=== PATIENT | male | born 1960 | race African-American/Black ===

== ENCOUNTER 2017-03-11 03:28 | Emergency (ER) | payer OTHER, BC ==
[2017-03-11] MEDS ORDERED: methylPREDNISolone NA SUCC 125 MG/2 ML VIAL IVPB ONE (04:19)
[2017-03-11] MEDS ORDERED: SODIUM CHLORIDE 1,000 ML IV STA (04:19)
[2017-03-11] MEDS ORDERED: MAGNESIUM SULF 50% (8.12 MEQ/2 ML-1 GM VIAL) IVPB ONE (04:19)
[2017-03-11] MEDS: ALBUTEROL SO4 2.5/IPRATROPIUM 0.5 INH SOL 3 ML VIAL.NEB. NEB SCH ×4 (04:36→05:30)
[2017-03-11] MEDS ORDERED: MAGNESIUM SULF 50% (8.12 MEQ/2 ML-1 GM VIAL) ONE (04:47)
[2017-03-11] MEDS ORDERED: methylPREDNISolone NA SUCC 125 MG/2 ML VIAL ONE (04:47)
[2017-03-11 04:48] VITALS: BMI 34.2
[2017-03-11 04:48] LABS: BASOPHIL 1.2 % (0-2.0); EOSINOPHIL 12.7 % (0-4.5); MCH 31.4 pg (25.7-33.7); MCHC 32.6 g/dl (32.0-35.9); MEAN CELL VOLUME 96.4 fl (80-96); MEAN PLT VOLUME 8.4 fl (7.5-11.1); PLATELET COUNT 184 K/MM3 (134-434); RDW 14.3 % (11.9-15.9)
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
[2017-03-11 05:10] LABS: ALBUMIN 3.9 g/dl (3.4-5.0); ANION GAP 15 (8-16); BILIRUBIN,TOTAL 0.2 mg/dL (0.2-1.0); CALCIUM 8.7 mg/dL (8.5-10.1); CO2 23 mmol/L (21-32); COCKROFT - GAULT 135.44; CREATININE 0.9 mg/dL (0.7-1.3); GLUCOSE,RANDOM 112 mg/dL (74-106); SGOT/AST 32 U/L (15-37); SGPT/ALT 33 U/L (12-78); TOT PROT 7.3 g/dl (6.4-8.2)
[2017-03-11 05:13] LABS: ALK PHOS 79 U/L (45-117); TROPONIN I < 0.02 ng/ml (0.00-0.05)
[2017-03-11] MEDS ORDERED: ALBUTEROL SO4 2.5/IPRATROPIUM 0.5 INH SOL 3 ML VIAL.NEB. NEB ONE (05:50)
--- NOTE | 2017-03-11 06:09 | PDOC ---
*Physical Exam - Vital Signs Last Vital Signs Temp Pulse Resp BP Pulse Ox 97.1 F L 88 22 114/70 95 03/11/17 04:04 03/11/17 04:04 03/11/17 04:04 03/11/17 04:04 03/11/17 04:04 ED Treatment Course - LABORATORY CBC & Chemistry Diagram: 03/11/17 04:39 03/11/17 04:39 - ADDITIONAL ORDERS Additional order review: Laboratory Results 03/11/17 04:39 Sodium 143 Potassium 3.5 D Chloride 105 Carbon Dioxide 23 Anion Gap 15 BUN 12 D Creatinine 0.9 Creat Clearance w eGFR > 60 Random Glucose 112 H Calcium 8.7 Total Bilirubin 0.2 D AST 32 D ALT 33 D Alkaline Phosphatase 79 Creatine Kinase 697 H D Troponin I < 0.02 D Total Protein 7.3 Albumin 3.9 D 03/11/17 04:39 RBC 4.23 D MCV 96.4 H MCHC 32.6 RDW 14.3 MPV 8.4 Neutrophils % 37.0 L D Lymphocytes % 39.0 D Monocytes % 10.1 Eosinophils % 12.7 H D Basophils % 1.2 D - Medications Given in the ED: ED Medications Discontinued Medications Generic Name Dose Route Start Last Admin Trade Name Freq PRN Reason Stop Dose Admin Albuterol/Ipratropium 1 amp 03/11/17 04:30 03/11/17 05:30 Duoneb - NEB 03/11/17 05:16 1 amp Q15M KENNEDY Administration Sodium Chloride 1,000 mls @ 1,000 mls/hr 03/11/17 04:19 03/11/17 04:59 Normal Saline - IV 03/11/17 05:18 1,000 mls/hr ASDIR STA Administration Magnesium Sulfate 2 gm 03/11/17 04:19 03/11/17 05:15 Magnesium Sulfate IVPB 03/11/17 04:20 2 gm ONCE ONE Administration Methylprednisolone Sodium Succinate 125 mg 03/11/17 04:19 03/11/17 05:00 Solu-Medrol - IVPB 03/11/17 04:20 125 mg ONCE ONE Administration Medical Decision Making - Medical Decision Making 03/11/17 06:00 Patient received in sign out from WALKER Mejia. Patient with history of asthma presenting with wheezing and cough despite using his albuterol inhaler and nebulizer once. Patient given steroids fluids and DuoNeb patient currently receiving DuoNeb. Patient will be reevaluated and asked to ambulate the ER and then check O2 sat. Patient's lungs are clear bilateral without wheezing, accessory muscle usage, or tachypnea. 03/11/17 06:22 Patient satting at 100% on room air. Patient has no inspiratory expiratory wheeze presently. Patient states feeling much better and will discharge home with a refill of his albuterol inhaler and 3 more days of steroids. *DC/Admit/Observation/Transfer Diagnosis at time of Disposition: Exacerbation of asthma - Discharge Dispostion Disposition: HOME Condition at time of disposition: Improved - Referrals Referrals: Osmin Briceño MD [Primary Care Provider] - - Patient Instructions Printed Discharge Instructions: DI for Asthma -- Adult Additional Instructions: Please take steroids starting tomorrow since your given a dose here in the ER ready. Also recommend that you avoid using the vapor cigarette and carry your albuterol inhaler with you at all times.
[2017-03-11 06:28] VITALS: BP 116/72; PULSE 68; TEMP 97.4
--- NOTE | 2017-03-11 06:29 | PDOC ---
*Physical Exam - Vital Signs Last Vital Signs Temp Pulse Resp BP Pulse Ox 97.1 F L 88 22 114/70 95 03/11/17 04:04 03/11/17 04:04 03/11/17 04:04 03/11/17 04:04 03/11/17 04:04 ED Treatment Course - LABORATORY CBC & Chemistry Diagram: 03/11/17 04:39 03/11/17 04:39 - ADDITIONAL ORDERS Additional order review: Laboratory Results 03/11/17 03/11/17 04:39 04:39 Sodium 143 Potassium 3.5 D Chloride 105 Carbon Dioxide 23 Anion Gap 15 BUN 12 D Creatinine 0.9 Creat Clearance w eGFR > 60 Random Glucose 112 H Calcium 8.7 Total Bilirubin 0.2 D AST 32 D ALT 33 D Alkaline Phosphatase 79 Creatine Kinase 697 H D Creatine Kinase Index 0.3 CK-MB (CK-2) 2.562 CK-MB (CK-2) Rel Index Cancelled Troponin I < 0.02 D Total Protein 7.3 Albumin 3.9 D 03/11/17 04:39 RBC 4.23 D MCV 96.4 H MCHC 32.6 RDW 14.3 MPV 8.4 Neutrophils % 37.0 L D Lymphocytes % 39.0 D Monocytes % 10.1 Eosinophils % 12.7 H D Basophils % 1.2 D - Medications Given in the ED: ED Medications Discontinued Medications Generic Name Dose Route Start Last Admin Trade Name Freq PRN Reason Stop Dose Admin Albuterol/Ipratropium 1 amp 03/11/17 04:30 03/11/17 05:30 Duoneb - NEB 03/11/17 05:16 1 amp Q15M KENNEDY Administration Sodium Chloride 1,000 mls @ 1,000 mls/hr 03/11/17 04:19 03/11/17 04:59 Normal Saline - IV 03/11/17 05:18 1,000 mls/hr ASDIR STA Administration Magnesium Sulfate 2 gm 03/11/17 04:19 03/11/17 05:15 Magnesium Sulfate IVPB 03/11/17 04:20 2 gm ONCE ONE Administration Methylprednisolone Sodium Succinate 125 mg 03/11/17 04:19 03/11/17 05:00 Solu-Medrol - IVPB 03/11/17 04:20 125 mg ONCE ONE Administration Medical Decision Making - Medical Decision Making 03/11/17 06:28 agree with care from WALKER Espinal and WALKER Castorena *DC/Admit/Observation/Transfer Diagnosis at time of Disposition: Asthma exacerbation - Discharge Dispostion Disposition: HOME Condition at time of disposition: Improved - Prescriptions Prescriptions: Prednisone [Deltasone -] 40 mg PO DAILY #6 tablet Albuterol Sulfate Inhaler - [Ventolin HFA Inhaler -] 1 - 2 inh PO QID PRN #1 inhaler PRN Reason: Wheezing - Referrals Referrals: Osmin Briceño MD [Primary Care Provider] - - Patient Instructions Printed Discharge Instructions: DI for Asthma -- Adult Additional Instructions: Please take steroids starting tomorrow since your given a dose here in the ER ready. Also recommend that you avoid using the vapor cigarette and carry your albuterol inhaler with you at all times. - Post Discharge Activity
== END 2017-03-11 06:29 | disposition home or self-care (01) ==
LOC: JER 03:28
PROC: 3E0F7GC Introduction of Other Therapeutic Substance into Respiratory Tract, Via Natural or Artificial Opening (ICD-10-PCS; principal; 2017-03-11)
PROC: 3E033GC Introduction of Other Therapeutic Substance into Peripheral Vein, Percutaneous Approach (ICD-10-PCS; 2017-03-11)
PROC: 3E0337Z Introduction of Electrolytic and Water Balance Substance into Peripheral Vein, Percutaneous Approach (ICD-10-PCS; 2017-03-11)
DX: J45.909 Unspecified asthma, uncomplicated (principal)
CPT/HCPCS: 36415; 71010-TC; 80053; 82550; 82553; 84484; 85025; 99282-25

== ENCOUNTER 2020-10-02 13:50 | Emergency (ER) | payer BC ==
[2020-10-02 14:04] VITALS: BMI 36.3
[2020-10-02 15:36] LABS: BASO % 1.4 % (0-2.0); EOS % 6.8 % (0-4.5); HEMATOCRIT 34.2 % (35.4-49); HEMOGLOBIN 10.8 GM/dL (11.7-16.9); LYMPH % 30.7 % (8-40); MCH 26.5 pg (25.7-33.7); MCHC 31.5 g/dl (32.0-35.9); MEAN CELL VOLUME 84.2 fl (80-96); MEAN PLT VOLUME 7.9 fl (7.5-11.1); MONO % 12.3 % (3.8-10.2); NEUT % 48.8 % (42.8-82.8); PLATELET COUNT 339 K/MM3 (134-434); RBC 4.06 M/mm3 (4.00-5.60); RDW 17.6 % (11.9-15.9); WHITE BLOOD COUNT 5.3 K/mm3 (4.0-10.0)
[2020-10-02 15:48] LABS: URINE APPEARANCE CLEAR; URINE BILIRUBIN NEGATIVE (NEGATIVE); URINE COLOR YELLOW; URINE GLUCOSE (UA) NEGATIVE (NEGATIVE); URINE KETONE NEGATIVE (NEGATIVE); URINE LEUK ESTERASE NEGATIVE (NEGATIVE); URINE NITRITE NEGATIVE (NEGATIVE); URINE PROTEIN NEGATIVE (NEGATIVE); URINE UROBILINOGEN 0.2 mg/dL (0.2-1.0)
[2020-10-02 15:52] LABS: POTASSIUM 3.4 mmol/L (3.5-5.1)
[2020-10-02 15:54] LABS: CALCIUM 9.4 mg/dL (8.5-10.1)
[2020-10-02 15:55] LABS: BLOOD UREA NITROGEN 14.3 mg/dL (7-18)
[2020-10-02 15:58] LABS: CREATININE 1.1 mg/dL (0.55-1.3)
[2020-10-02 15:59] LABS: BILIRUBIN,TOTAL 0.5 mg/dL (0.2-1)
[2020-10-02 16:00] LABS: TOT PROT 7.9 g/dl (6.4-8.2)
[2020-10-02] MEDS ORDERED: ACETAMINOPHEN 1000 MG/100 ML VIAL (NON FORMULARY) IVPB ONE (16:13)
[2020-10-02] MEDS ORDERED: ACETAMINOPHEN INJECTION 100 ML IVPB ONE (16:46)
[2020-10-02] MEDS ORDERED: IBUPROFEN 400 MG TABLET (FP) PO ONE (19:47)
[2020-10-02 20:09] VITALS: BP 125/88; PULSE 82; TEMP 97.7
== END 2020-10-02 20:09 | disposition home or self-care (01) ==
LOC: JER 13:50
PROC: 3E0333Z Introduction of Anti-inflammatory into Peripheral Vein, Percutaneous Approach (ICD-10-PCS; principal; 2020-10-02)
DX: M54.5 Low back pain (principal)
CPT/HCPCS: 36415; 74177-TC; 80053; 81003; 83690; 85025; 87086; 99285-25; J0131; Q9967

== ENCOUNTER 2022-09-15 23:10 | Emergency (ER) | payer BC ==
[2022-09-16 00:06] VITALS: BP 104/68; PULSE 74; RESP 18; TEMP 97.7; BMI 33.4
== END 2022-09-16 03:12 | disposition left against medical advice (07) ==
LOC: JER 23:10
DX: R00.2 Palpitations (principal); R07.89 Other chest pain
CPT/HCPCS: 93005; 93010; 99284-25

== ENCOUNTER 2022-09-16 15:21 | Observation (INO) | payer BC ==
[2022-09-16 17:09] VITALS: BMI 33.4
[2022-09-16 20:25] LABS: BASO % 1.3 % (0-2.0); EOS % 7.1 % (0-4.5); HEMATOCRIT 42.4 % (35.4-49); LYMPH % 37.2 % (8-40); MCH 32.8 pg (25.7-33.7); MCHC 32.9 g/dl (32.0-35.9); MEAN CELL VOLUME 99.7 fl (80-96); MEAN PLT VOLUME 8.4 fl (7.5-11.1); MONO % 11.6 % (3.8-10.2); NEUT % 42.8 % (42.8-82.8); PLATELET COUNT 211 10^3/uL (134-434); RBC 4.26 M/mm3 (4.00-5.60); WHITE BLOOD COUNT 4.2 K/mm3 (4.0-10.0)
[2022-09-16 20:49] LABS: ALBUMIN 4.2 g/dl (3.4-5.0); BLOOD UREA NITROGEN 10.8 mg/dL (7-18); CALCIUM 9.6 mg/dL (8.5-10.1); MAGNESIUM 1.8 mg/dL (1.8-2.4)
[2022-09-16 20:52] LABS: PHOSPHOROUS 3.1 mg/dL (2.5-4.9)
[2022-09-16 20:54] LABS: BILIRUBIN,TOTAL 0.8 mg/dL (0.2-1); TOT PROT 7.9 g/dl (6.4-8.2)
[2022-09-16] MEDS ORDERED: APIXABAN 5 MG TABLET ONE (22:19)
[2022-09-16] MEDS: APIXABAN 5 MG TABLET PO SCH (22:26)
[2022-09-16] MEDS ORDERED: METOPROLOL TARTRATE 5 MG/5 ML VIAL IVPUSH PRN (23:29)
[2022-09-16] MEDS ORDERED: METOPROLOL TARTRATE 25 MG TABLET (FP) PO SCH (23:30)
[2022-09-16] MEDS ORDERED: ALBUTEROL SO4 HFA INHALER IH PRN (23:33)
[2022-09-17] MEDS ORDERED: METOPROLOL TARTRATE 25 MG TABLET (FP) ONE (00:11)
[2022-09-17] MEDS ORDERED: KCL 10 MEQ IVPB 10 MEQ/100 ML INFUS.BAG IVPB ONE ×3 (00:34→02:06)
[2022-09-17] MEDS: KCL 10 MEQ IVPB 10 MEQ/100 ML INFUS.BAG IVPB SCH ×3 (00:41→02:14)
[2022-09-17] MEDS: BUDESONIDE/FORMETEROL FUMARATE 160/4.5 mcg INHALER IH SCH ×2 (00:41→10:05)
[2022-09-17] MEDS ORDERED: SODIUM CHLORIDE 250 ML IV STA (01:03)
[2022-09-17] MEDS ORDERED: GABAPENTIN 400 MG CAPSULE ONE ×3 (05:29→13:41)
[2022-09-17] MEDS: GABAPENTIN 400 MG CAPSULE PO SCH ×2 (05:34→14:00)
[2022-09-17] MEDS: INSULIN SLIDING SCALE (NOVOLOG) 1 VIAL SQ SCH ×3 (06:23→13:51)
[2022-09-17 07:54] VITALS: TEMP 98
[2022-09-17 08:58] LABS: BASO % 0.5 % (0-2.0); EOS % 7.5 % (0-4.5); HEMATOCRIT 40.5 % (35.4-49); HEMOGLOBIN 13.4 GM/dL (11.7-16.9); LYMPH % 29.3 % (8-40); MEAN CELL VOLUME 99.9 fl (80-96); MEAN PLT VOLUME 8.5 fl (7.5-11.1); MONO % 11.4 % (3.8-10.2); NEUT % 51.3 % (42.8-82.8); PLATELET COUNT 201 10^3/uL (134-434); RBC 4.05 M/mm3 (4.00-5.60); RDW 14.6 % (11.9-15.9); WHITE BLOOD COUNT 4.5 K/mm3 (4.0-10.0)
[2022-09-17 09:19] LABS: MAGNESIUM 1.7 mg/dL (1.8-2.4)
[2022-09-17 09:21] LABS: ALBUMIN 3.8 g/dl (3.4-5.0); BLOOD UREA NITROGEN 12.7 mg/dL (7-18)
[2022-09-17] MEDS ORDERED: METOPROLOL TARTRATE 25 MG TABLET (FP) PO SCH (09:22)
[2022-09-17 09:23] LABS: CREATININE 0.9 mg/dL (0.55-1.3)
[2022-09-17 09:24] LABS: PHOSPHOROUS 2.6 mg/dL (2.5-4.9); TOT PROT 7.1 g/dl (6.4-8.2)
[2022-09-17 09:26] LABS: BILIRUBIN,TOTAL 0.8 mg/dL (0.2-1)
[2022-09-17] MEDS ORDERED: APIXABAN 5 MG TABLET ONE (09:49)
[2022-09-17] MEDS ORDERED: LOSARTAN POTASSIUM 25 MG TABLET ONE (09:49)
[2022-09-17] MEDS ORDERED: HYDROCHLOROTHIAZIDE 25 MG TABLET (FP) ONE (09:49)
[2022-09-17] MEDS ORDERED: amLODIPine BESYLATE 10 MG TABLET (FP) ONE (09:49)
[2022-09-17] MEDS ORDERED: HYDROCHLOROTHIAZIDE 12.5 MG CAPSULE (FP) PO SCH (10:00)
[2022-09-17] MEDS ORDERED: HYDROCHLOROTHIAZIDE 25 MG TABLET (FP) PO SCH (10:00)
[2022-09-17] MEDS ORDERED: FOLIC ACID 1 MG TABLET (FP) PO SCH (10:00)
[2022-09-17] MEDS ORDERED: LOSARTAN POTASSIUM 25 MG TABLET PO SCH (10:00)
[2022-09-17] MEDS ORDERED: amLODIPine BESYLATE 5 MG TABLET (FP) PO SCH (10:00)
[2022-09-17] MEDS ORDERED: amLODIPine BESYLATE 10 MG TABLET (FP) PO SCH (10:00)
[2022-09-17] MEDS: APIXABAN 5 MG TABLET PO SCH (10:05)
[2022-09-17] MEDS ORDERED: METOPROLOL TARTRATE 50 MG TABLET (FP) PO SCH (13:03)
[2022-09-17 15:14] VITALS: BP 111/62; PULSE 94; RESP 20
[2022-09-17] MEDS ORDERED: ATORVASTATIN CA 20 MG TABLET (FP) PO SCH (22:00)
== END 2022-09-17 15:00 | disposition home or self-care (01) ==
LOC: JER 15:21 → JERBED 22:14 → INTOOBSV 22:14
PROVIDERS: ADMIT Internal Medicine; ATTEND Internal Medicine
PROC: 3E033GC Introduction of Other Therapeutic Substance into Peripheral Vein, Percutaneous Approach (ICD-10-PCS; principal; 2022-09-16)
PROC: 3E0337Z Introduction of Electrolytic and Water Balance Substance into Peripheral Vein, Percutaneous Approach (ICD-10-PCS; 2022-09-16)
PROC: 3E03329 Introduction of Other Anti-infective into Peripheral Vein, Percutaneous Approach (ICD-10-PCS; 2022-09-16)
PROC: 3E0337Z Introduction of Electrolytic and Water Balance Substance into Peripheral Vein, Percutaneous Approach (ICD-10-PCS; 2022-09-16)
DX: I48.91 Unspecified atrial fibrillation (principal); R00.2 Palpitations; E78.5 Hyperlipidemia, unspecified; I10 Essential (primary) hypertension; J44.9 Chronic obstructive pulmonary disease, unspecified; Z29.8 Encounter for other specified prophylactic measures; Z79.01 Long term (current) use of anticoagulants; E66.8 Other obesity; Z68.33 Body mass index [BMI] 33.0-33.9, adult; D64.9 Anemia, unspecified; K29.70 Gastritis, unspecified, without bleeding; K57.90 Diverticulosis of intestine, part unspecified, without perforation or abscess without bleeding; R73.03 Prediabetes; Z87.891 Personal history of nicotine dependence; J32.8 Other chronic sinusitis
CPT/HCPCS: 0241U-QW; 36415; 71046-TC-FY; 80053; 80061; 82962; 83036; 83735; 84100; 84443; 84484; 85025; 93005; 93010; 93306-TC; 96361; 96365; 99285-25; G0378

== ENCOUNTER 2023-04-08 09:55 | Observation (INO) | payer BC ==
[2023-04-08] MEDS ORDERED: PANTOPRAZOLE SODIUM 40 MG VIAL IVPUSH ONE ×2 (10:26→10:29)
[2023-04-08] MEDS ORDERED: PANTOPRAZOLE SODIUM 40 MG VIAL ONE (10:52)
[2023-04-08 10:56] LABS: BASO % 0.7 % (0-2.0); EOS % 2.3 % (0-4.5); HEMATOCRIT 18.2 % (35.4-49); LYMPH % 35.7 % (8-40); MCH 28.7 pg (25.7-33.7); MCHC 31.9 g/dl (32.0-35.9); MEAN CELL VOLUME 89.9 fl (80-96); MEAN PLT VOLUME 7.5 fl (7.5-11.1); MONO % 10.8 % (3.8-10.2); NEUT % 50.5 % (42.8-82.8); PLATELET COUNT 373 10^3/uL (134-434); RBC 2.02 M/mm3 (4.00-5.60); RDW 18.4 % (11.9-15.9); WHITE BLOOD COUNT 4.2 K/mm3 (4.0-10.0)
[2023-04-08 10:58] LABS: HEMOGLOBIN 5.8 GM/dL (11.7-16.9)
[2023-04-08 11:04] LABS: INR 1.51 (0.83-1.09); PROTHROMBIN TIME (PATIENT) 17.5 SEC (9.7-13.0)
[2023-04-08 11:07] LABS: ACTIVATED PTT 30.1 SECONDS (25.2-36.5)
[2023-04-08 11:19] LABS: POTASSIUM 3.4 mmol/L (3.5-5.1)
[2023-04-08 11:21] LABS: ALBUMIN 3.1 g/dl (3.4-5.0)
[2023-04-08 11:22] LABS: BLOOD UREA NITROGEN 8.6 mg/dL (7-18); MAGNESIUM 1.9 mg/dL (1.8-2.4)
[2023-04-08 11:26] LABS: BILIRUBIN,TOTAL 0.2 mg/dL (0.2-1); TOT PROT 5.9 g/dl (6.4-8.2)
[2023-04-08] MEDS ORDERED: LORazepam 2 MG/ML SDV VIAL IVPUSH PRN ×2 (14:17→16:32)
[2023-04-08] MEDS ORDERED: METOPROLOL TARTRATE 5 MG/5 ML VIAL IVPUSH PRN (14:41)
[2023-04-08 17:57] LABS: URINE APPEARANCE CLEAR; URINE BILIRUBIN NEGATIVE (NEGATIVE); URINE COLOR YELLOW; URINE GLUCOSE (UA) NEGATIVE (NEGATIVE); URINE KETONE NEGATIVE (NEGATIVE); URINE LEUK ESTERASE NEGATIVE (NEGATIVE); URINE NITRITE NEGATIVE (NEGATIVE); URINE PROTEIN NEGATIVE (NEGATIVE); URINE UROBILINOGEN 0.2 mg/dL (0.2-1.0)
[2023-04-08 20:31] LABS: BASO % 0.8 % (0-2.0); EOS % 1.7 % (0-4.5); HEMATOCRIT 23.8 % (35.4-49); HEMOGLOBIN 7.6 GM/dL (11.7-16.9); LYMPH % 19.2 % (8-40); MCH 27.4 pg (25.7-33.7); MCHC 31.9 g/dl (32.0-35.9); MEAN CELL VOLUME 85.9 fl (80-96); MEAN PLT VOLUME 6.9 fl (7.5-11.1); MONO % 11.2 % (3.8-10.2); NEUT % 67.1 % (42.8-82.8); PLATELET COUNT 372 10^3/uL (134-434); RBC 2.77 M/mm3 (4.00-5.60); RDW 18.6 % (11.9-15.9); WHITE BLOOD COUNT 5.2 K/mm3 (4.0-10.0)
[2023-04-08 20:45] LABS: INR 1.41 (0.83-1.09); PROTHROMBIN TIME (PATIENT) 16.3 SEC (9.7-13.0)
[2023-04-08 21:01] LABS: ALBUMIN 2.9 g/dl (3.4-5.0); BLOOD UREA NITROGEN 7.4 mg/dL (7-18); CALCIUM 8.5 mg/dL (8.5-10.1)
[2023-04-08 21:04] LABS: CREATININE 1.1 mg/dL (0.55-1.3)
[2023-04-08 21:05] LABS: BILIRUBIN,TOTAL 0.7 mg/dL (0.2-1); TOT PROT 5.8 g/dl (6.4-8.2)
[2023-04-08 21:08] LABS: POTASSIUM 3.2 mmol/L (3.5-5.1)
[2023-04-08] MEDS: LACTATED RINGERS SOLUTION 1,000 ML/1,000 ML INFUS.BAG IV SCH (21:48)
[2023-04-08] MEDS ORDERED: PANTOPRAZOLE 40 MG TABLET PO ONE (21:48)
[2023-04-08] MEDS: PANTOPRAZOLE 40 MG TABLET PO SCH (21:48)
[2023-04-08] MEDS ORDERED: ATORVASTATIN CA 20 MG TABLET (FP) ONE (21:48)
[2023-04-08] MEDS ORDERED: PATIENT'S OWN MEDICATION (NON-FORMULARY) (Azelastine Hcl [Azelastine Hcl] 137 MCG/0.137 ML NS SCH (22:00)
[2023-04-08] MEDS ORDERED: ATORVASTATIN CA 20 MG TABLET (FP) PO SCH (22:00)
[2023-04-09] MEDS: LACTATED RINGERS SOLUTION 1,000 ML/1,000 ML INFUS.BAG IV SCH (00:28)
[2023-04-09] MEDS: PANTOPRAZOLE 40 MG TABLET PO SCH (09:03)
[2023-04-09 09:11] LABS: BASO % 0.4 % (0-2.0); EOS % 1.8 % (0-4.5); HEMOGLOBIN 7.9 GM/dL (11.7-16.9); LYMPH % 21.9 % (8-40); MCH 27.5 pg (25.7-33.7); MCHC 32.9 g/dl (32.0-35.9); MEAN CELL VOLUME 83.6 fl (80-96); MEAN PLT VOLUME 7.5 fl (7.5-11.1); MONO % 9.4 % (3.8-10.2); NEUT % 66.5 % (42.8-82.8); PLATELET COUNT 354 10^3/uL (134-434); RBC 2.88 M/mm3 (4.00-5.60); RDW 18.6 % (11.9-15.9); WHITE BLOOD COUNT 5.9 K/mm3 (4.0-10.0)
[2023-04-09 09:27] LABS: POTASSIUM 3.1 mmol/L (3.5-5.1)
[2023-04-09 09:38] LABS: CALCIUM 8.7 mg/dL (8.5-10.1); MAGNESIUM 1.8 mg/dL (1.8-2.4)
[2023-04-09 09:39] LABS: ALBUMIN 3.1 g/dl (3.4-5.0); BLOOD UREA NITROGEN 6.4 mg/dL (7-18)
[2023-04-09 09:41] LABS: CREATININE 0.8 mg/dL (0.55-1.3); PHOSPHOROUS 3.3 mg/dL (2.5-4.9)
[2023-04-09 09:42] LABS: BILIRUBIN,TOTAL 0.6 mg/dL (0.2-1)
[2023-04-09 09:43] LABS: TOT PROT 5.8 g/dl (6.4-8.2)
[2023-04-09 09:45] LABS: RETICULOCYTES 2.27 % (0.5-1.5)
[2023-04-09] MEDS ORDERED: ACETAMINOPHEN 1000 MG/100 ML BAG IVPB ONE (09:45)
[2023-04-09] MEDS ORDERED: FENTANYL CITRATE/PF 50 MCG/ML VIAL ONE (10:14)
[2023-04-09] MEDS ORDERED: MIDAZOLAM HCL 2 MG/2 ML SINGLE DOSE VIAL ONE (10:14)
[2023-04-09] MEDS: KCL 10 MEQ IVPB 10 MEQ/100 ML INFUS.BAG IVPB SCH ×3 (11:46→14:04)
[2023-04-09 14:12] VITALS: RESP 18
[2023-04-09 14:49] VITALS: BMI 31.6
[2023-04-09] MEDS ORDERED: POTASSIUM CHLORIDE TABS 20 MEQ TABLET.ER (FP) PO ONE (17:19)
[2023-04-09 17:58] VITALS: BP 124/78; PULSE 61; TEMP 98.4
== END 2023-04-09 18:37 | disposition home or self-care (01) ==
LOC: JER 09:55 → JERBED 13:10 → J4S 22:46
PROVIDERS: ADMIT Internal Medicine; ATTEND Nurse Practitioner Family
PROC: 3E033NZ Introduction of Analgesics, Hypnotics, Sedatives into Peripheral Vein, Percutaneous Approach (ICD-10-PCS; principal; 2023-04-08)
PROC: 3E0337Z Introduction of Electrolytic and Water Balance Substance into Peripheral Vein, Percutaneous Approach (ICD-10-PCS; 2023-04-08)
PROC: 3E033GC Introduction of Other Therapeutic Substance into Peripheral Vein, Percutaneous Approach (ICD-10-PCS; 2023-04-08)
PROC: 30233N1 Transfusion of Nonautologous Red Blood Cells into Peripheral Vein, Percutaneous Approach (ICD-10-PCS; 2023-04-08)
PROC: 0DB68ZX Excision of Stomach, Via Natural or Artificial Opening Endoscopic, Diagnostic (ICD-10-PCS; 2023-04-08)
DX: K57.90 Diverticulosis of intestine, part unspecified, without perforation or abscess without bleeding (principal); K92.1 Melena; E11.9 Type 2 diabetes mellitus without complications; J45.909 Unspecified asthma, uncomplicated; I10 Essential (primary) hypertension; Z79.01 Long term (current) use of anticoagulants; D64.89 Other specified anemias; I48.91 Unspecified atrial fibrillation; J32.8 Other chronic sinusitis; Z96.651 Presence of right artificial knee joint; F17.210 Nicotine dependence, cigarettes, uncomplicated
CPT/HCPCS: 36415; 36430; 71045-TC-FY; 74174-TC; 80053; 81003; 82272; 82962; 83690; 83735; 84100; 84132; 84484; 85025; 85045; 85610; 85730; 86850; 86900; 86901; 86922; 88104; 88305-TC; 88342-TC; 93005; 93010; 96361; 96367; 96374; 96375; 99285-25; G0378; P9058; Q9967